=== PATIENT | male | born 1990 | race Two or more races ===

== ENCOUNTER 2020-09-19 09:20 | Emergency (ER) | payer SELFPAY ==
[~2020-09-19] VITALS: Ht 172.7 cm; Wt 65.8 kg
[2020-09-19 10:01] VITALS: BP 127/90
[2020-09-19] MEDS ORDERED: LIDOCAINE 1% HCL (LOCAL ANESTH.) INJ 20ML MDV ONE (11:27)
[2020-09-19] MEDS ORDERED: LIDOCAINE 1% HCL (LOCAL ANESTH.) INJ 20ML MDV ID ONE (11:30)
[2020-09-19] MEDS ORDERED: cefTRIAXone W LIDOCAINE 1 GM IM IM ONE (11:45)
[2020-09-19] MEDS ORDERED: TETANUS-DIPTH-ACEL PERTUSSIS 0.5ML SYR Tdap IM ONE (11:45)
[2020-09-19] MEDS ORDERED: cefTRIAXone SOD 1,000 MG VL ONE (12:00)
== END 2020-09-19 12:04 | disposition home or self-care (01) ==
LOC: ER 09:20
DX: S61.011A Laceration without foreign body of right thumb without damage to nail, initial encounter (principal); Z88.0 Allergy status to penicillin; W22.8XXA Striking against or struck by other objects, initial encounter; Y93.89 Activity, other specified; Y92.89 Other specified places as the place of occurrence of the external cause; Y99.8 Other external cause status
CPT/HCPCS: 12002; 73130; 90471; 90715; 96372; 99284; J0696; J2001

== ENCOUNTER 2024-01-08 01:19 | Emergency (ER) | payer OTHER ==
[~2024-01-08] VITALS: Ht 172.7 cm; Wt 72.7 kg
[2024-01-08] MEDS: HYDROcodone-ACET 5/325MG TAB PO ONE ×2 (02:07→02:33)
[2024-01-08] MEDS: KETOROLAC TROMETH 60MG/2ML VIAL IM ONE (02:07)
[2024-01-08 02:42] VITALS: BP 123/81; PULSE 89; RESP 18; TEMP 98.3; O2SAT 95
[2024-01-08] MEDS ORDERED: IBUP-1456 PO (02:46)
== END 2024-01-08 03:47 | disposition home or self-care (01) ==
LOC: ER 01:19
DX: S82.392A Other fracture of lower end of left tibia, initial encounter for closed fracture (principal); S82.492A Other fracture of shaft of left fibula, initial encounter for closed fracture; Z88.0 Allergy status to penicillin; Z79.1 Long term (current) use of non-steroidal anti-inflammatories (NSAID); X50.1XXA Overexertion from prolonged static or awkward postures, initial encounter; Y93.01 Activity, walking, marching and hiking; Y92.89 Other specified places as the place of occurrence of the external cause; Y99.8 Other external cause status
CPT/HCPCS: 29505; 73590; 96372; 99283; J1885

== ENCOUNTER → 2024-01-09 | Outpatient (CLI) | payer OTHER ==
[~2024-01-09] MED LIST: IBUP-1456 PO; PERCOT PO
[2024-01-09 13:18] LABS: Urine Bacteria None Seen /hpf (None Seen)
[2024-01-09 13:40] LABS: Basophils # (auto) 0 10 ^3/uL (0-0.2); Basophils % (auto) 0.5 % (0.0-2.0); Eosinophils # (auto) 0.1 10 ^3/uL (0-0.8); Eosinophils % (auto) 1.5 % (0.0-7.0); Hematocrit 43.4 % (41.0-53.0); Hemoglobin 14.7 g/dL (13.5-17.5); Lymphocytes # (auto) 2.7 10 ^3/uL (0.4-5.4); Lymphocytes % (auto) 28.1 % (10.0-50.0); Mean Corpuscular Hemoglobin 30.5 pg (28.0-32.0); Mean Corpuscular Volume 89.8 fL (80.0-100.0); Monocytes # (auto) 0.9 10 ^3/uL (0-1.3); Neutrophils # (auto) 5.9 10 ^3/uL (1.6-8.6); Neutrophils % (auto) 60.9 % (37.0-80.0); Nucleated Red Blood Cells % 0.1 %; Platelet Count (auto) 215 10^3/uL (140-450); Red Blood Cells 4.83 10^6/uL (4.5-5.90); Red Cell Distribution Width 13.5 % (11.8-14.3); White Blood Cell 9.6 10^3/uL (4.4-10.8)
[2024-01-09 13:51] LABS: Urine Blood Negative /uL (Negative); Urine Clarity Clear (Clear); Urine Color Light-Yellow (Yellow); Urine Mucus FEW (None Seen); Urine Protein, UAD TRACE (Negative); Urine Specific Gravity 1.019 (1.001-1.035); Urine Urobilinogen Normal (Negative); Urine WBC 1 /hpf (0 - 3); Urine pH 5.5 (5.0-9.0)
[2024-01-09 14:00] LABS: Alanine Aminotransferase 22 U/L (7-40); Albumin 4.8 g/dL (3.2-4.8); Alkaline Phosphatase 94 U/L (46-116); Anion Gap 5 (5-15); Aspartate Aminotransferase 26 U/L (13-40); BUN/Creatinine Ratio 10.8 (10.0-20.0); Bilirubin, Total 0.7 mg/dL (0.2-1.0); Blood Urea Nitrogen 12 mg/dL (9-23); Calcium 9.8 mg/dL (8.7-10.4); Carbon Dioxide 29 mmol/L (20-31); Chloride 107 mmol/L (98-107); Glucose 104 mg/dL (74-106); Potassium 4.3 mmol/L (3.5-5.1); Sodium 141 mmol/L (136-145); Total Protein 7.8 g/dL (5.7-8.2)
[2024-01-09 14:09] LABS: INR 0.97 (0.9-1.15); Partial Thromboplastin Time 26.4 SEC (24.5-34.5); Prothrombin Time 10.3 sec (9.3-11.8)
== END | disposition home or self-care (01) ==
LOC: LAB 13:03
PROVIDERS: ATTEND Psychiatry & Neurology Neurology
DX: Z01.812 Encounter for preprocedural laboratory examination (principal)
CPT/HCPCS: 36415; 80053; 81001; 85025; 85610; 85730

== ENCOUNTER → 2024-01-13 | Day surgery (SDC) | payer OTHER ==
[~2024-01-13] VITALS: Ht 172.7 cm; Wt 72.6 kg
[~2024-01-13] MED LIST changes: +BUPIVACAINE 0.25% INJ 50ML VIAL ONE; +DexAMETHasone SOD PHOS 10MG/1ML VIAL INJ ONE; +HYDROmorphone HCL 2 MG/ML VL/or syr IV PRN; +KETOROLAC TROMETH 30 MG/ML 1ML VIAL IV ONE; +KETOROLAC TROMETH 30 MG/ML 1ML VIAL ONE; +LIDOCAINE 1% HCL (LOCAL ANESTH.) INJ 20ML MDV ONE; +MEPERIDINE HCL (50 MG/ML) 1 ML VIAL ONE; +MIDAZOLAM HCL 2MG/2ML 2ml VIAL (1mg/ml) IV PRN; +MIDAZOLAM HCL 2MG/2ML 2ml VIAL (1mg/ml) ONE; +MORPHINE SULFATE 4 MG/ML SYR/VIAL IV PRN; +ONDANSETRON HCL 4 MG/2 ML VIAL IV ONE; +ONDANSETRON HCL 4 MG/2 ML VIAL ONE; +PHENYLEPHRINE HCL 10 MG/ML VL IV ONE; +PROPOFOL 10 MG/ML 20 ML IV ONE; +ROPIVACAINE 0.5% (5MG/ML) 20ML AMPULE IJ ONE; +VANCOMYCIN HCL 1000 MG VL ONE; +ePHEDrine SULFATE 50 MG/ML AMP IV PRN; +fentaNYL CITRATE 100 MCG/2 ML VL ONE; +hydrALAZINE HCL 20 MG/ML VL IV PRN
[2024-01-13 11:40] VITALS: PULSE 60; RESP 13; TEMP 98.7; O2SAT 100
--- NOTE | 2024-01-13 12:22 | DVH ---
C-ARM FLUOROSCOPY: PROCEDURE: left tibial intramedullary FLUOROSCOPY TIME: 1 min 15 sec
[2024-01-13 12:25] VITALS: BP 141/89; PULSE 87; RESP 17; O2SAT 99
--- NOTE | 2024-01-13 12:25 | DVH ---
FLUOROSCOPY TIME: 1 minute 16 seconds TECHNIQUE: Intraoperative radiographs of the left tibia /fibula were obtained. COMPARISON: XY L TIB FIB XRAY on DOS: 01/08/24 FINDINGS: Refer to intraoperative report for further evaluation. IMPRESSION: Refer to intraoperative report for further evaluation.
--- NOTE | 2024-03-20 06:31 | DVHOP2 ---
Operative Report - 2 Report Details Date: 02/07/24 Preop Diagnosis: Left tibia-fibula fracture Postop Diagnosis: as above Surgeon: Amandeep Orta MD Anesthesiologist: See notes Anesthesia: General Implant: Arthrex-AOS Consent: The patient was informed of the risks and benefits of the procedure. These include but are not limited to complications of anesthesia, postoperative infection, incomplete relief of symptoms, recurrence of symptoms, damage to blood vessels, nerves and tendons, deep venous thrombosis, pulmonary embolism and possible need for repeat surgery in the future. Estimated Blood Loss: 10 cc Indications for Surgery: displaced left distal tibia fracture Name of Procedure Performed open reduction internal fixation of left tibia fracture, intraop fluoro Procedure Details Procedure Details: The patient was met in the preoperative holding area and operative site was marked. The patient was brought to the operating room and given preoperative antibiotics. Left leg was then prepped and draped in the usual sterile fashion. A midline incision was made in the center of the knee and was carried down sharply to the retinacular tissue of quadiceps using supero-patella technique. The starting guidewire was used to localize the correct starting point, which is on the medial aspect of the lateral tibial eminence. This was advanced and confirmed on the AP and lateral fluoroscopic images. The opening reamer was then used and the ball-tip guidewire was passed. The reduction was obtained over a large radiolucent triangle and percutaneous clamps. After passing the guidewire and achieving appropriate reduction, the flexible reamers were then sequentially passed. At this point, a nailwas passed without difficulty. The guide was used to the proximal locking screw and the appropriate [place] technique was used to the distal locking screw. The final images were taken with fluoroscopy and a 15- mm end-cap was placed. The wounds were then irrigated and closed with 2-0 Vicryl followed by douglas to the distal screws and 0 Vicryl followed 2-0 Vicryl and douglas to the proximal incision. The patient was placed in a short leg, well- padded splint, was awakened and taken to recovery in good condition. Condition Good Disposition Home AMANDEEP ORTA MD Mar 20, 2024 06:31
== END | disposition home or self-care (01) ==
LOC: SUR 09:59
PROVIDERS: ATTEND Orthopaedic Surgery Adult Reconstructive Orthopaedic Surgery
DX: S82.242A Displaced spiral fracture of shaft of left tibia, initial encounter for closed fracture (principal); G89.18 Other acute postprocedural pain; J45.909 Unspecified asthma, uncomplicated; K44.9 Diaphragmatic hernia without obstruction or gangrene; Z88.0 Allergy status to penicillin; Z79.899 Other long term (current) drug therapy; Z83.3 Family history of diabetes mellitus; X58.XXXA Exposure to other specified factors, initial encounter; Y93.89 Activity, other specified; Y92.89 Other specified places as the place of occurrence of the external cause; Y99.8 Other external cause status
CPT/HCPCS: 27759; 64447; 73590; C1713; C1769; J1100; J1885; J2003; J2175; J2250; J2371; J2405; J2704; J2795; J3010; J3370; 76000; J3490